=== PATIENT | female | born 1995 | race Hispanic/Latino ===

== ENCOUNTER 2018-01-15 22:10 | Emergency (ER) | payer SELFPAY ==
[~2018-01-15] VITALS: Ht 154.9 cm; Wt 63.5 kg
[2018-01-15] MEDS ORDERED: DIPHTH/TETANUS/ACEL. PERTUSSIS 0.5 ML SYR IM ONE (23:15)
[2018-01-15] MEDS ORDERED: SILVER NITRATE SWABS TOP ONE (23:15)
[2018-01-15] MEDS ORDERED: BACITRACIN ZINC 15 GM OINT TOP SCH (23:15)
== END 2018-01-15 23:12 | disposition home or self-care (01) ==
LOC: FSED 22:10
DX: S61.002A Unspecified open wound of left thumb without damage to nail, initial encounter (principal); W26.0XXA Contact with knife, initial encounter; Y92.000 Kitchen of unspecified non-institutional (private) residence as the place of occurrence of the external cause
CPT/HCPCS: 99283